=== PATIENT | male | born 1955 | race Caucasian/White ===

== ENCOUNTER 2018-02-19 07:41 | Inpatient (IN) | payer OTHER ==
[~2018-02-19 07:41] MED LIST: SOD CHLORIDE 0.9% 100 ML, TRANEXAMIC ACID 3,000 MG IRR
[2018-02-19] MEDS: GABAPENTIN 300 MG CAP PO ×2 (08:23→21:09)
[2018-02-19] MEDS: traMADol 50 MG TAB PO (08:23)
[2018-02-19] MEDS: DEXAMETHASONE 1 MG TAB PO (08:23)
[2018-02-19] MEDS ORDERED: MIDAZOLAM 1 MG/ML 2 ML INJ (09:35)
[2018-02-19] MEDS ORDERED: CEFAZOLIN 1 GM INJ (09:35)
[2018-02-19] MEDS ORDERED: ROCURONIUM 50 MG INJ (09:35)
[2018-02-19] MEDS ORDERED: PROPOFOL 20 ML (09:35)
[2018-02-19] MEDS ORDERED: FENTAnyl 50 MCG/ML VIAL (09:36)
[2018-02-19] MEDS ORDERED: BUPIVACAINE 0.75%/DEXT (SPINAL) 2 ML INJ (09:36)
[2018-02-19] MEDS ORDERED: morphine SULFATE/PF (10 MG/10 ML) INJ (09:39)
[2018-02-19] MEDS: CEFAZOLIN 2 GM/50 ML (PMX) 50 ML IVPB (10:22)
[2018-02-19] MEDS ORDERED: DEXAMETHASONE 4 MG/ML 1 ML INJ (10:34)
[2018-02-19] MEDS ORDERED: ONDANSETRON 4 MG INJ (10:34)
[2018-02-19] MEDS ORDERED: ACETAMINOPHEN 1000MG/100ML IV 100 ML (10:34)
[2018-02-19] MEDS ORDERED: KETOROLAC 30 MG INJ (10:34)
[2018-02-19] MEDS ORDERED: METOCLOPRAMIDE 10 MG INJ (10:34)
[2018-02-19] MEDS: TRANEXAMIC ACID 1,000 MG in DEXTROSE 5% 100 ML IVPB (10:45)
[2018-02-19] MEDS ORDERED: PHENYLephrine (100 MCG/ML) 5ML SYG ×2 (11:25→12:10)
[2018-02-19] MEDS ORDERED: ROPIVACAINE 0.5 % 30 ML VIAL (11:48)
[2018-02-19] MEDS ORDERED: HETASTARCH 6% NACL 500 ML (12:19)
[2018-02-19] MEDS ORDERED: FENTAnyl 50 MCG/ML VIAL IV ×3 (12:30)
[2018-02-19] MEDS ORDERED: OXYCODONE/ACETAMINOPHEN (5/325) TAB PO ×3 (12:30→13:00)
[2018-02-19] MEDS ORDERED: LABETALOL HCL 20MG INJ IV (12:30)
[2018-02-19] MEDS ORDERED: MEPERIDINE 25 MG INJ IV (12:30)
[2018-02-19] MEDS ORDERED: DIPHENHYDRAMINE 50 MG INJ IV ×3 (12:30→13:00)
[2018-02-19] MEDS ORDERED: EPHEDrine SULFATE 50 MG/5 ML SYG IV (12:30)
[2018-02-19] MEDS ORDERED: HYDROmorphONE 1 MG/5 ML IV SYRINGE IV ×3 (12:30)
[2018-02-19] MEDS ORDERED: NALBUPHINE HCL (10 MG/1 ML) INJ IV (12:30)
[2018-02-19] MEDS ORDERED: ALBUMIN HUMAN 5% 250 ML IV (12:30)
[2018-02-19] MEDS ORDERED: METOCLOPRAMIDE 10 MG INJ IV (12:30)
[2018-02-19] MEDS ORDERED: NALOXONE (0.4 MG/ML) INJ IV (12:30)
[2018-02-19] MEDS ORDERED: ONDANSETRON 4 MG INJ IV ×2 (12:30→13:00)
[2018-02-19] MEDS ORDERED: hydrALAzine 20 MG INJ IV (12:30)
[2018-02-19] MEDS ORDERED: VANCOMYCIN 1 GM INJ (12:43)
[2018-02-19] MEDS ORDERED: morphine 2 MG INJ IV ×2 (13:00)
[2018-02-19] MEDS ORDERED: ACETAMINOPHEN 500 MG TAB PO (13:00)
[2018-02-19] MEDS ORDERED: ZOLPIDEM 5 MG TAB PO (13:00)
[2018-02-19] MEDS ORDERED: KETOROLAC 15 MG INJ IV (13:00)
[2018-02-19] MEDS: POLYMYXIN/BACITRACIN 1L IRRIG IRR (13:00)
[2018-02-19] MEDS: BUPIVACAINE 0.5% (SDV) 30 ML, morphine SULFATE (PF) 8 MG, EPINEPHrine 0.3 MG, KETOROLAC... IRR (13:00)
[2018-02-19] MEDS ORDERED: MAGNESIUM HYDROXIDE 30ML CUP PO (13:00)
[2018-02-19] MEDS: TRANEXAMIC ACID 1,000 MG in DEXTROSE 5% 100 ML IV (14:39)
[2018-02-19] MEDS: CEFAZOLIN 1 GM/50 ML (PMX) 50 ML IVPB (15:44)
[2018-02-19 16:08] LABS: ADD MAN DIFF? NO
[2018-02-19 16:10] LABS: WHITE BLOOD COUNT 7.1 10^3/ul (4.8-10.8)
[2018-02-19 16:10] LABS: ABNORMAL IP MESSAGE 1; BASOPHILS % 0.1 % (0.0-2.0); EOSINOPHILS % 0.3 % (0.0-7.0); HEMATOCRIT 27.7 % (42.0-52.0); HEMOGLOBIN 9.1 g/dl (14.0-18.0); LYMPHOCYTES # 0.4 10^3/ul (0.8-2.9); MEAN CORPUSCULAR HEMOGLOBIN 30.8 pg (29.0-33.0); MEAN CORPUSCULAR HGB CONC 32.9 g/dl (32.0-37.0); MEAN CORPUSCULAR VOLUME 93.9 fl (82.0-101.0); MEAN PLATELET VOLUME 9.7 fl (7.4-10.4); MONOCYTE # 0.1 10^3/ul (0.3-0.9); MONOCYTES % 1.7 % (0.0-11.0); NEUTROPHIL # 6.5 10^3/ul (1.6-7.5); NEUTROPHILS % 91.5 % (39.0-77.0); PLATELET COUNT 196 10^3/UL (140-415); POSITIVE DIFF @See below; RED BLOOD COUNT 2.95 10^6/ul (4.70-6.10)
[2018-02-19] MEDS: LACTATED RINGER'S 1,000 ML IV (16:22)
[2018-02-19] MEDS: DEXAMETHASONE 2 MG TAB PO (18:12)
[2018-02-19] MEDS: ATORVASTATIN 10 MG TAB PO (21:09)
[2018-02-19] MEDS: SENNA/DOCUSATE NA (8.6MG/50MG) TAB PO (21:09)
[2018-02-19] MEDS ORDERED: morphine LIQ (10 MG/5 ML) CUP PO ×2 (22:30)
[2018-02-20] MEDS: CEFAZOLIN 1 GM/50 ML (PMX) 50 ML IVPB ×2 (00:07→10:09)
[2018-02-20] MEDS: DEXAMETHASONE 2 MG TAB PO ×2 (00:07→06:36)
[2018-02-20] MEDS: LACTATED RINGER'S 1,000 ML IV (00:08)
[2018-02-20 05:35] LABS: ADD MAN DIFF? NO
[2018-02-20 05:40] LABS: BASOPHILS % 0.1 % (0.0-2.0); HEMATOCRIT 27.3 % (42.0-52.0); HEMOGLOBIN 8.8 g/dl (14.0-18.0); LYMPHOCYTES # 0.6 10^3/ul (0.8-2.9); LYMPHOCYTES % 6.7 % (15.0-51.0); MEAN CORPUSCULAR HEMOGLOBIN 30.8 pg (29.0-33.0); MEAN CORPUSCULAR HGB CONC 32.2 g/dl (32.0-37.0); MEAN CORPUSCULAR VOLUME 95.5 fl (82.0-101.0); MEAN PLATELET VOLUME 10.4 fl (7.4-10.4); MONOCYTE # 0.6 10^3/ul (0.3-0.9); NEUTROPHIL # 8.1 10^3/ul (1.6-7.5); NEUTROPHILS % 86.7 % (39.0-77.0); PLATELET COUNT 207 10^3/UL (140-415); RED BLOOD COUNT 2.86 10^6/ul (4.70-6.10); RED CELL DISTRIBUTION WIDTH 12.9 % (11.5-14.5)
[2018-02-20 05:40] LABS: WHITE BLOOD COUNT 9.3 10^3/ul (4.8-10.8)
[2018-02-20] MEDS: OXYCODONE/ACETAMINOPHEN (5/325) TAB PO (08:09)
[2018-02-20] MEDS ORDERED: HYDROCHLOROTHIAZIDE 25 MG TAB PO (09:00)
[2018-02-20] MEDS: ASPIRIN 81 MG TAB PO (09:04)
[2018-02-20] MEDS: SENNA/DOCUSATE NA (8.6MG/50MG) TAB PO (09:04)
[2018-02-20] MEDS: LOSARTAN 50 MG TAB PO (09:05)
== END 2018-02-20 11:19 | disposition home or self-care (01) | DRG 470 ==
LOC: REC 07:41 → MS1 16:04
PROVIDERS: Orthopaedic Surgery
PROC: 0SR904A Replacement of Right Hip Joint with Ceramic on Polyethylene Synthetic Substitute, Uncemented, Open Approach (ICD-10-PCS; principal; 2018-02-19 10:00)
DX: M16.11 Unilateral primary osteoarthritis, right hip (principal); I10 Essential (primary) hypertension; E78.5 Hyperlipidemia, unspecified; D64.9 Anemia, unspecified; Z85.46 Personal history of malignant neoplasm of prostate
CPT/HCPCS: 72170; 73530; 85025; 86850; 86900; 86901; 86999; 87070; 87075; 87086; 97161